=== PATIENT | female | born 1970 | race Caucasian/White ===

== ENCOUNTER → 2016-05-28 | Outpatient (CLI) | payer OTHER | LOC: HEART 5 02-25 12:00 | DX: I34.1 Nonrheumatic mitral (valve) prolapse (principal); R00.2 Palpitations | CPT/HCPCS: 93306 ==

== ENCOUNTER 2020-03-22 23:35 | Emergency (ER) | payer OTHER ==
[~2020-03-22 23:35] MED LIST: MORPHINE SULFAT15 M1 PO; OMEPRAZOLE40 MG PO
[2020-03-23] MEDS ORDERED: IBUPROFEN800 MG PO (01:59)
== END 2020-03-23 02:50 | disposition home or self-care (01) ==
LOC: ER1 23:35
DX: S60.022A Contusion of left index finger without damage to nail, initial encounter (principal); I10 Essential (primary) hypertension; F17.210 Nicotine dependence, cigarettes, uncomplicated; Z88.1 Allergy status to other antibiotic agents; Z88.8 Allergy status to other drugs, medicaments and biological substances; W22.8XXA Striking against or struck by other objects, initial encounter; Y92.009 Unspecified place in unspecified non-institutional (private) residence as the place of occurrence of the external cause
CPT/HCPCS: 73140; 99283

== ENCOUNTER 2020-04-25 22:03 | Emergency (ER) | payer OTHER ==
[~2020-04-25 22:03] MED LIST changes: +IBUPROFEN800 MG PO
[2020-04-26 00:39] LABS: HEMOGLOBIN 14.2 gm/dl (12.3-15.3); RED BLOOD COUNT 4.67 M/UL (4.00-5.10); WHITE BLOOD COUNT 6.9 K/UL (4.5-11.0)
[2020-04-26 01:00] LABS: BUN/CREATININE RATIO 17 (0-10)
[2020-04-26] MEDS ORDERED: PHENERGAN 12.12.5 MG PR (01:56)
[2020-04-26] MEDS ORDERED: ZOFRAN4 MG PO (01:56)
[2020-04-26] MEDS ORDERED: BACTROBAN OINT22 GM TOP (01:59)
== END 2020-04-26 02:33 | disposition home or self-care (01) ==
LOC: ER1 22:03
PROVIDERS: Physician Assistant
DX: K83.8 Other specified diseases of biliary tract (principal); E87.6 Hypokalemia; R21 Rash and other nonspecific skin eruption; F17.210 Nicotine dependence, cigarettes, uncomplicated; Z88.1 Allergy status to other antibiotic agents; Z88.8 Allergy status to other drugs, medicaments and biological substances
CPT/HCPCS: 36415; 80053; 80307; 83690; 85025; 96374; 96375; 99284; C9113; J1885; J2405; Q9967

== ENCOUNTER 2020-07-05 15:20 | Emergency (ER) | payer OTHER ==
[~2020-07-05 15:20] MED LIST changes: +BACTROBAN OINT22 GM TOP; +PHENERGAN 12.12.5 MG PR; +ZOFRAN4 MG PO
[2020-07-05 18:35] LABS: HEMOGLOBIN 13.6 gm/dl (12.3-15.3); RED BLOOD COUNT 4.53 M/UL (4.00-5.10); WHITE BLOOD COUNT 7.2 K/UL (4.5-11.0)
[2020-07-05 18:47] LABS: BUN/CREATININE RATIO 13 (0-10)
[2020-07-05] MEDS ORDERED: ZOFRAN4 MG PO (20:20)
[2020-07-05] MEDS ORDERED: PROTONIX40 MG PO (20:20)
[2020-07-05] MEDS ORDERED: HYDROCORTISON28.4 G2 TP (20:20)
[2020-07-05] MEDS ORDERED: CYCLOBENZAPRINE10 MG PO (20:59)
== END 2020-07-05 21:01 | disposition home or self-care (01) ==
LOC: ER1 15:20
PROVIDERS: Physician Assistant
DX: R51.9 Headache, unspecified (principal); R21 Rash and other nonspecific skin eruption; R11.0 Nausea; E16.2 Hypoglycemia, unspecified; I10 Essential (primary) hypertension; Z90.49 Acquired absence of other specified parts of digestive tract; F17.210 Nicotine dependence, cigarettes, uncomplicated; Z88.8 Allergy status to other drugs, medicaments and biological substances
CPT/HCPCS: 70450; 80053; 80307; 81001; 83690; 84703; 85025; 87077; 87086; 87186; 96374; 99284; J2405; J7030